=== PATIENT | male | born 1980 | race African-American/Black ===

== ENCOUNTER 2020-08-30 13:39 | Outpatient (REF) | payer OTHER, SELFPAY ==
[2020-08-30 16:25] LABS: MANUAL DIFF FLAG NO
[2020-08-30 16:29] LABS: Basophils Percent Auto 0.5 % (0-2); Eosinophils Absolute Auto 0.1 X10*3/uL (0.0-0.4); Eosinophils Percent Auto 1.2 % (0-4); Hematocrit 42.6 % (42-52); Hemoglobin 14.3 g/dl (14.0-18.0); Imm Gran Abs Auto 0.01 X10*3/uL (0.00-0.03); Imm Gran Pct Auto 0.2 % (0.0-0.4); Lymphocytes Absolute Auto 1.3 X10*3/uL (1.2-4.9); Lymphocytes Percent Auto 30.5 % (20-40); Mean Corpuscular HGB Conc 33.6 g/dl (31.0-36.0); Mean Corpuscular Hemoglobin 30.8 pg (27.0-33.0); Mean Corpuscular Volume 91.6 fL (80-98); Mean Platelet Volume 11.6 fL (9.4-12.4); Monocytes Absolute Auto 0.3 X10*3/uL (0.1-1.2); Monocytes Percent Auto 7.3 % (2-11); Neutrophils Absolute Auto 2.6 X10*3/uL (2.0-8.3); Neutrophils Percent Auto 60.3 % (45-73); Platelet Count 199 X10*3/uL (160-400); Red Blood Count 4.65 X10*6/uL (4.60-5.80); White Blood Count 4.2 X10*3/uL (4.8-10.8)
[2020-08-30 16:51] LABS: Alanine Aminotransferase 26 U/L (0-40); Albumin Level 4.3 g/dL (3.5-5.0); Alkaline Phosphatase 78 U/L (39-117); Anion Gap 13 (12-20); Aspartate Amino Transferase 26 U/L (5-37); Bilirubin Total 0.4 mg/dL (0.0-1.0); Blood Urea Nitrogen 12 mg/dL (9-16); Calcium 9.2 mg/dL (8.4-10.2); Carbon Dioxide 25 mmol/L (22-29); Chloride 107 mmol/L (96-108); Cholesterol 235 mg/dL; Estimated Glomerular Filt Rate > 60; Glucose Fasting 82 mg/dL (60-99); HDL Cholesterol 43 mg/dL; LDL Cholesterol Calculated 150 mg/dl; Potassium 4.5 mmol/L (3.3-5.1); Sodium 140 mmol/L (135-145); Total Protein 7.9 g/dL (6.5-8.0); Triglycerides 213 mg/dL
[2020-08-30 17:11] LABS: TSH reflex Free T4 1.07 uIU/mL (0.32-4.0)
[2020-08-30 17:13] LABS: Syphilis Screen Reactive (Nonreactive)
[2020-08-31 08:42] LABS: Herpes Simplex Type 1 IgG <0.90 index; Herpes Simplex Type 2 IgG 8.89 index
[2020-08-31 09:32] LABS: HBc Num1 0.05 S/CO (0.00-0.79); HIV AB/AG Nonreactive (Nonreactive); HIV Num 1 0.18 S/CO (0.00-0.99); Hepatitis B Core Antibody Nonreactive (Nonreactive); ~HepC Num1 0.09 S/CO (0.00-0.79); ~Hepatitis C Antibody Nonreactive (Nonreactive)
[2020-08-31 09:39] LABS: HBS Num1 0.13 mIU/mL (0-7.99); HBsAGNum1 0.41 S/CO (0.00-0.99); Hepatitis B Surface Antigen Negative (Negative); ~Hepatitis B Surface Antibody NONREACTIVE (Nonreactive)
[2020-09-04 08:57] LABS: Hepatitis A Antibody IgM 0.12 Index (0-0.79); ~Hepatitis A Antibody IgM Nonreactive (Nonreactive)
[2020-09-06 10:47] LABS: RPR Quantitative Reactive 1:4 (Nonreactive)
[2020-09-06 10:48] LABS: T.Pallidum Particle Agg Test Reactive (Nonreactive)
== END 2020-08-30 13:40 | disposition home or self-care (01) ==
LOC: HO.HMGCLDS 13:39
PROVIDERS: PCP Internal Medicine; Visit Provider Internal Medicine
DX: Z00.01 Encounter for general adult medical examination with abnormal findings (principal); E66.9 Obesity, unspecified; Z11.3 Encounter for screening for infections with a predominantly sexual mode of transmission; Z11.4 Encounter for screening for human immunodeficiency virus [HIV]; Z11.59 Encounter for screening for other viral diseases; Z13.220 Encounter for screening for lipoid disorders; Z11.8 Encounter for screening for other infectious and parasitic diseases; Z13.29 Encounter for screening for other suspected endocrine disorder; Z23 Encounter for immunization
CPT/HCPCS: 36415; 80053; 80061; 84443; 85025; 86592; 86695; 86696; 86704; 86706; 86709; 86780; 86803; 87340; 87389

== ENCOUNTER → 2020-10-29 11:09 | Outpatient (BNVA) | payer OTHER, SELFPAY | PROVIDERS: PCP Internal Medicine; Visit Provider Internal Medicine | DX: B00.9 Herpesviral infection, unspecified (principal); A53.9 Syphilis, unspecified | CPT/HCPCS: 99202 ==

== ENCOUNTER 2024-09-28 09:14 | Outpatient (REF) | payer OTHER, SELFPAY ==
--- NOTE | ~2024-09-28 | XR_ITS ---
EXAMINATION: XR CHEST CLINICAL INFORMATION: R05.9 - Cough, unspecified COMPARISON: None available. TECHNIQUE: 2 views of the chest were obtained. FINDINGS: The cardiac, hilar, and mediastinal contours are normal. The lungs are clear bilaterally. There is no pneumothorax or pleural effusion. There is no focal osseous or soft tissue abnormality. XR/XR chest 2V IMPRESSION: Normal chest. Electronically signed by: Vadim Serna MD 09/28/2024 10:47 AM EDT
== END 2024-09-28 09:15 | disposition home or self-care (01) ==
LOC: HO.HMGCX 09:14
PROVIDERS: Visit Provider Nurse Practitioner Family
DX: R05.2 Subacute cough (principal)
CPT/HCPCS: 71046; 99202

== ENCOUNTER 2024-09-28 09:14 | Outpatient (AMB) | payer OTHER, SELFPAY ==
--- NOTE | 2024-09-28 09:25 | AM.OFFWIN_ITS ---
Intake Vital Signs 09/28/24 09:27 Height 5 ft 11 in Weight 225 lb BMI 31.4 BP 122/84 Blood Pressure Location Rt brachial Position Sitting Pulse 65 Pulse Source Pulse Oximeter Temp 97.9 F Temp Source Oral Pulse Oximetry (%) 98 Oxygen Delivery Method Room Air Intake Visit Reasons: EP-chest congestion, cough, sob Intake Note: Patient here for chest congestion,cough and headache that started about 2 weeks ago. Patient Tobacco Use Status: Current everyday Tobacco user Allergies pollen Allergy (Unknown, Uncoded 09/28/24 09:26) unknown Do you need a note to return to daycare/school/sports/work: Yes HPI HPI Comments History of Present Illness Details 44 y/o Male patient who presents to the walk in clinic with c/o chest congestion,cough and headache that started about 2 weeks ago. His GF with similar symptoms and they live together. [facility] Medical History (Updated 09/28/24 @ 10:24 by Radha Powell NP) Cough Social History Alcohol intake: former Patient Tobacco Use Status: Current everyday Tobacco user Review of Systems Const All systems reviewed & are unremarkable except as noted in HPI and below Physical Exam Vital Signs: Last Vital Signs Temp 97.9 F 09/28/24 09:27 Pulse 65 09/28/24 09:27 BP 122/84 09/28/24 09:27 Pulse Ox 98 09/28/24 09:27 Oxygen Delivery Method Room Air 09/28/24 09:27 BMI result Body Mass Index 31.4 Const General: no acute distress Nutritional Appearance: overweight Orientation/consciousness: patient oriented x3 HEENT Head: Yes normocephalic Ears: external ears normal and TM abnormal with fluid behind the TM bilateral General nose exam: Normal external nose present Face and sinus: Yes sinuses nontender Mouth: moist mucous membranes Throat: Yes uvula midline Resp Effort & Inspection: normal respiratory effort, able to speak in complete sentences and Actively coughing Auscultation: no crackles, no rales, no rhonchi and wheezes scattered wheezes Cardio Rhythm: regular rhythm Heart sounds: S1 normal heart sound present and S2 normal heart sound present Neuro General: patient oriented x3 Assessment & Plan Assessment & Plan (1) Cough: Code(s): R05.9 - Cough, unspecified Qualifiers: Cough type: subacute Qualified Code(s): R05.2 - Subacute cough Plan: Ordered Chest XRay to r/o Pneumonia. Ordered Z-pack OTC cough remedies. Orders: Orders XR chest 2V Today R05.9 - Cough, unspecified Medications: New azithromycin 500 mg PO DAILY 3 days 3 tabs 0RF R05.9 - Cough, unspecified azithromycin 500 mg PO DAILY 3 days 3 tabs 0RF R05.9 - Cough, unspecified Coding Level of Care Code New Pt Level 4 (07329) Diagnoses Subacute cough R05.2 Cough type: subacute Time Spent (min) 20
[2024-09-28 09:27] VITALS: BP 122/84; PULSE 65; TEMP 36.6; O2SAT 98; BMI 31.4
== END 2024-09-28 10:51 | disposition home or self-care (01) ==
PROVIDERS: Visit Provider Nurse Practitioner Family
DX: R05.2 Subacute cough (principal)

== ENCOUNTER → 2024-09-28 10:33 | Outpatient (BNV) | payer OTHER, SELFPAY | PROVIDERS: Visit Provider Radiology Diagnostic Radiology | DX: R05.9 Cough, unspecified (principal) | CPT/HCPCS: 71046 ==

== ENCOUNTER 2024-10-11 11:41 | Outpatient (AMB) | payer OTHER, SELFPAY ==
[2024-10-11 11:52] VITALS: BP 120/78; PULSE 69; O2SAT 98; BMI 32.9
--- NOTE | 2024-10-11 11:52 | MHC.PC.OV ---
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 Allergies pollen Allergy (Unknown, Uncoded 10/11/24 11:52) unknown Medication List - Last Reconciled 10/11/24 by Santa Posada MD No Known Home Meds Tobacco use date assessed: 10/11/24 Dental Screening Dental Screen Date: 10/11/24 Did you have a dental visit in the last 12 months?: No Did you have a dental problem in the last 6 months where you did not have access to dental care?: No Was dental information given to patient?: Patient has dentist HPI 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 Typically, respiratory illnesses for this patient resolve in two to three days; however, this episode persisted for two weeks. Post-illness, the patient reports an ongoing need to clear phlegm which is yellow in color, sometimes brown in color. There has been no use of antibiotics for the recent respiratory symptoms. - The patient has a history of being bitten by a venomous spider during incarceration, resulting in an abdominal wound that has since healed. 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 - The patient has decided to cease smoking cannabis, a habit maintained since the age of 12, due to prior heavy usage and recent introspection. - The patient acknowledges being herpes positive and seeks testing for other sexually transmitted infections following a recent exposure. - Discussed colon cancer screening (colonoscopy) given age and wishes to proceed. Health Maintenance - Discussed age-appropriate colon cancer screening through referral for colonoscopy. - Reviewed previous tetanus vaccination in 2020, confirmed up-to-date status. - Provided guidance on smoking cessation, particularly the cessation of cannabis. 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 Patient Instructions - Stop smoking cannabis and seek support as necessary. - Follow up for colonoscopy referral will be initiated, and scheduling will occur based on instant printer operator availability. - Maintain current vaccinations; tetanus is up to date. - Proceed with sexually transmitted infections testing. - Contact the office if symptoms worsen or new symptoms develop. Review of Systems - General: No fever no chills - Neurological: No headaches no dizziness - Ear nose throat: No sore throat no hearing difficulty no ear pain - Cardiovascular: No syncope, no chest pain, no palpitations - Gastrointestinal: No nausea vomiting or diarrhea - Endocrine: No polyuria polydipsia no heat intolerance - Genitourinary: No dysuria - Skin: No new complaints Physical Exam General: Cooperative, healthy appearing, comfortable, no acute distress Orientation: Patient oriented x3 Head: Normal to inspection Ears: Within normal limit visually Nose: Normal external nose present Face and sinus: Normal facial exam Eyes: Appearance normal, extraocular movement intact pupils reactive Neck: Normal visual inspection and supple Respiratory: Normal respiratory effort and able to speak in complete sentences. Clear to auscultation, no stridor Cardiovascular: S1 and S2 RRR GI: Normal to inspection. Soft to palpation and nontender. Scar present on abdomen from previous spider bite Skin: Turgor normal, no acute findings. Cyst present on left buttock Neuro: Patient oriented x3, motor sensory intact, balance intact, tandem pass Extremities: Normal to inspection [facility] Medical History Cough Social History Housing: House Alcohol intake: former Patient Tobacco Use Status: Current everyday Tobacco user e-Cigarette/Vaping Use: Never Used service: No Current occupational status: employed Current occupational exposures/hazards: No Cognitive needs: No Hearing needs: No Vision needs: No Questionnaire PHQ-9 Over the last 2 weeks, how often have you been bothered by any of the following problems? 1. Little interest or pleasure in doing things: not at all 2. Feeling down, depressed, or hopeless: not at all 3. Trouble falling or staying asleep, or sleeping too much: not at all 4. Feeling tired or having little energy: not at all 5. Poor appetite or overeating: not at all 6. Feeling bad about yourself - or that you are a failure or have let yourself or your family down: not at all 7. Trouble concentrating on things, such as reading the newspaper or watching television: not at all 8. Moving or speaking so slowly that other people could have noticed. Or the opposite - being so fidgety or restless that you have been moving around a lot more than usual: not at all 9. Thoughts that you would be better off or of hurting yourself in some way: not at all Total score: 0 Depression Screening Interpretation: Negative Depression Screening Done: Yes 79454 - PHQ-9 Billing: Yes Source: Developed by Drs. Eric Perez, Irene Anne, Patrick Hi and colleagues, with an educational alea from [employer]. Thrive Questionnaire Date Thrive assessed: 10/11/24 I am a: Patient What is your living situation today?: I have a steady place to live Within the past 12 months, did the food you bought not last and you didn't have the money to get more?: Sometimes True Within the past 12 months, did you worry whether your food would run out before you got money to buy more?: Sometimes True Do you have trouble paying for medicines?: No Do you have trouble getting transportation to medical appointments?: No Do you have trouble paying your heating and electricity bill?: No Do you have trouble taking care of your child, family member or friend?: No Do you have trouble with day-to-day activities such as bathing, preparing meals, shopping, managing finances, etc.?: No Are you currently unemployed and looking for a job?: No Are you interested in more education?: No Please select the resources that you would like help with: Housing/Longterm Currently or been in a relationship where the following occur: Controlled Emotionally THRIVE Score: 3 AUDIT C Alcohol Use Questionnaire (AUDIT-C) 1. How often do you have a drink containing alcohol?: 2-4 times a month 2. How many drinks containing alcohol do you have on a typical day when you are drinking?: 1 or 2 3. How often do you have six or more drinks on one occasion?: Never Total Score: 2 Score Reviewed/Action Taken: Yes PADMA-7 AMB Questionnaire PADMA-7 Date PADMA - 7 assessed: 10/11/24 Feeling nervous, anxious, or on edge: 1 = Several days Not being able to stop or control worryin = Several days Worrying too much about different things: 1 = Several days Trouble relaxin = Several days Being so restless that it is hard to sit still: 0 = Not at all Becoming easily annoyed or irritable: 1 = Several days Feeling afraid as if something awful might happen: 2 = More than half the days Total PADMA-7 score (0-4 normal; 5-9 mild; 10-14 moderate; 15-21 severe): 7 Source: Developed by Drs. Eric Perez, Irene Anne, Patrick Hi and colleagues, with an educational alea from [employer]. PADMA-7 Assessment Billing PADMA-7 Assessment Tool: PADMA-7 Assessment 18557 Physical exam (Primary Care) Vital Signs: Last Vital Signs Pulse 69 10/11/24 11:52 BP 120/78 10/11/24 11:52 Pulse Ox 98 10/11/24 11:52 Oxygen Delivery Method Room Air 10/11/24 11:52 BMI result Body Mass Index 32.9 Tobacco/Smoking Status: Tobacco use Status Tobacco use date assessed 10/11/24 10/11/24 11:59 Patient Tobacco Use Status Current everyday Tobacco 10/11/24 11:59 e-Cigarette/Vaping Use Never Used 10/11/24 11:59 PHQ-9: PHQ-9 Score PHQ-9: Total score 0 10/11/24 12:16 Depression Screening Interpretation: Negative Thrive Assessment: Date of Thrive Assessment Date Thrive assessed 10/11/24 10/11/24 11:59 Currently or been in a relationship where the following occur: Controlled Emotionally Coding Level of Care Code New Pt Level 3 (58077) New Pt Prev Care 40-64y(76685) Diagnoses Encounter for general adult medical examination with abnormal findings Z00.01 Obesity (BMI 30.0-34.9) E66.9 Lipid disorder E78.9 Screen for STD (sexually transmitted disease) Z11.3 Additional Codes PADMA-7 Assessment Billing - PADMA-7 Assessment Tool: PADMA-7 Assessment 78512 ([id number]) PHQ-9 - 27051 - PHQ-9 Billing: Yes ([id number]) Assessment & Plan Assessment & Plan (1) Encounter for general adult medical examination with abnormal findings: Code(s): Z00.01 - Encounter for general adult medical examination with abnormal findings Category: Medical (2) Obesity (BMI 30.0-34.9): Code(s): E66.9 - Obesity, unspecified Category: Medical (3) Lipid disorder: Code(s): E78.9 - Disorder of lipoprotein metabolism, unspecified Category: Medical (4) Screen for STD (sexually transmitted disease): Code(s): Z11.3 - Encounter for screening for infections with a predominantly sexual mode of transmission Category: Medical Plan New patient appointment - The patient is a 44-year-old male presenting with follow-up concerning a recurrent left buttock cyst and respiratory symptoms - The patient experienced a sinus infection two weeks prior, which evolved into a chest cold. Typically, respiratory illnesses for this patient resolve in two to three days; however, this episode persisted for two weeks. Post-illness, the patient reports an ongoing need to clear phlegm which is yellow in color, sometimes brown in color. There has been no use of antibiotics for the recent respiratory symptoms. - The patient has a history of being bitten by a venomous spider during incarceration, resulting in an abdominal wound that has since healed. 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 - The patient has decided to cease smoking cannabis, a habit maintained since the age of 12, due to prior heavy usage and recent introspection. - The patient acknowledges being herpes positive and seeks testing for other sexually transmitted infections following a recent exposure. - Discussed colon cancer screening (colonoscopy) given age and wishes to proceed. Health Maintenance - Discussed age-appropriate colon cancer screening through referral for colonoscopy. - Reviewed previous tetanus vaccination in 2020, confirmed up-to-date status. - Provided guidance on smoking cessation, particularly the cessation of cannabis. 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 Patient Instructions - Stop smoking cannabis and seek support as necessary. - Follow up for colonoscopy referral will be initiated, and scheduling will occur based on instant printer operator availability. - Maintain current vaccinations; tetanus is up to date. - Proceed with sexually transmitted infections testing. - Contact the office if symptoms worsen or new symptoms develop. Orders: Orders Vitamin D 25-OH (D2 and D3) Today E66.9 - Obesity, unspecified, E78.9 - Disorder of lipoprotein metabolism, unspecified, Z00.01 - Encounter for general adult medical examination with abnormal findings TSH reflex Free T4 Today E66.9 - Obesity, unspecified, E78.9 - Disorder of lipoprotein metabolism, unspecified, Z00.01 - Encounter for general adult medical examination with abnormal findings Hepatitis C Antibody Today Z11.3 - Encounter for screening for infections with a predominantly sexual mode of transmission Herpes Simplex Virus Ab IgG Today Z11.3 - Encounter for screening for infections with a predominantly sexual mode of transmission Complete Blood Count Auto Diff Today E66.9 - Obesity, unspecified, E78.9 - Disorder of lipoprotein metabolism, unspecified, Z00.01 - Encounter for general adult medical examination with abnormal findings Comprehensive [place]. Panel Fast Today E66.9 - Obesity, unspecified, E78.9 - Disorder of lipoprotein metabolism, unspecified, Z00.01 - Encounter for general adult medical examination with abnormal findings Lipid Panel Today E66.9 - Obesity, unspecified, E78.9 - Disorder of lipoprotein metabolism, unspecified, Z00.01 - Encounter for general adult medical examination with abnormal findings Hepatitis B Surface Antibody Today Z11.3 - Encounter for screening for infections with a predominantly sexual mode of transmission HIV Ab/Ag Today Z11.3 - Encounter for screening for infections with a predominantly sexual mode of transmission Syphilis Screen Today Z11.3 - Encounter for screening for infections with a predominantly sexual mode of transmission Referrals Open Access Screening Colonoscopy Referral Z12.11 - Encounter for screening for malignant neoplasm of colon Medications: New azithromycin Take 2 tablets today then 1 daily 250 mg PO ONCE 5 days 6 tabs 0RF J06.9 - Acute upper respiratory infection, unspecified
== END 2024-10-11 12:17 | disposition home or self-care (01) ==
LOC: HO.HMCC 11:42
PROVIDERS: Visit Provider Internal Medicine
DX: Z00.01 Encounter for general adult medical examination with abnormal findings (principal); E78.9 Disorder of lipoprotein metabolism, unspecified; E66.9 Obesity, unspecified; Z68.32 Body mass index [BMI] 32.0-32.9, adult; Z11.3 Encounter for screening for infections with a predominantly sexual mode of transmission

== ENCOUNTER → 2024-10-11 11:41 | Outpatient (BNVA) | payer OTHER, SELFPAY | PROVIDERS: Visit Provider Internal Medicine | DX: Z00.01 Encounter for general adult medical examination with abnormal findings (principal); E66.9 Obesity, unspecified; E78.9 Disorder of lipoprotein metabolism, unspecified; J06.9 Acute upper respiratory infection, unspecified; L72.9 Follicular cyst of the skin and subcutaneous tissue, unspecified; B00.9 Herpesviral infection, unspecified; Z68.32 Body mass index [BMI] 32.0-32.9, adult | CPT/HCPCS: 96127; 99212; 99396 ==

== ENCOUNTER 2024-10-12 07:59 | Outpatient (REF) | payer OTHER, SELFPAY ==
[2024-10-12 10:18] LABS: MANUAL DIFF FLAG NO
[2024-10-12 10:30] LABS: Basophils Percent Auto 0.6 % (0-2); Eosinophils Absolute Auto 0.1 X10*3/uL (0.0-0.4); Hematocrit 42.8 % (42.0-52.0); Hemoglobin 14.3 g/dl (14.0-18.0); Imm Gran Abs Auto 0.01 X10*3/uL (0.00-0.03); Imm Gran Pct Auto 0.3 % (0.0-0.4); Lymphocytes Absolute Auto 1.3 X10*3/uL (1.2-4.9); Lymphocytes Percent Auto 36.8 % (20-40); Mean Corpuscular HGB Conc 33.4 g/dl (31.0-36.0); Mean Corpuscular Volume 92.8 fL (80.0-98.0); Mean Platelet Volume 11.1 fL (9.4-12.4); Monocytes Absolute Auto 0.3 X10*3/uL (0.1-1.2); Monocytes Percent Auto 9.1 % (2-11); Neutrophils Absolute Auto 1.7 x10*3/uL (2.0-8.3); Neutrophils Percent Auto 49.2 % (45-73); Platelet Count 197 X10*3/uL (160-400); Red Blood Count 4.61 X10*6/uL (4.60-5.80); White Blood Count 3.5 X10*3/uL (4.8-10.8)
[2024-10-12 11:33] LABS: Syphilis Screen Reactive (Nonreactive)
[2024-10-12 11:48] LABS: Alanine Aminotransferase 31 U/L (0-40); Albumin Level 4.2 g/dL (3.5-5.0); Alkaline Phosphatase 71 U/L (39-117); Anion Gap 10 (12-20); Aspartate Amino Transferase 35 U/L (5-37); Bilirubin Total 0.4 mg/dL (0.0-1.0); Blood Urea Nitrogen 10 mg/dL (9-16); Calcium 9.3 mg/dL (8.4-10.2); Carbon Dioxide 24 mmol/L (22-29); Chloride 110 mmol/L (96-108); Cholesterol 233 mg/dL (<200); Estimated Glomerular Filt Rate > 60; Glucose Fasting 98 mg/dL (60-99); HDL Cholesterol 45 mg/dL (>40); LDL Cholesterol Calculated 158 mg/dL (<100); Potassium 4.3 mmol/L (3.3-5.1); Sodium 140 mmol/L (135-145); TSH reflex Free T4 1.84 uIU/mL (0.32-4.0); Total Protein 7.6 g/dL (6.5-8.0); Triglycerides 152 mg/dL (<150)
[2024-10-12 12:03] LABS: HIV AB/AG Nonreactive (Nonreactive); ~HepC Num1 0.09 S/CO (0.00-0.79); ~Hepatitis B Surface Antibody NONREACTIVE (Nonreactive); ~Hepatitis C Antibody Nonreactive (Nonreactive)
[2024-10-13 06:39] LABS: Herpes Simplex Type 1 IgG <0.90 index; Herpes Simplex Type 2 IgG 7.85 index
[2024-10-14 15:29] LABS: RPR Quantitative Reactive 1:2 (Nonreactive); T.Pallidum Particle Agg Test Reactive (Nonreactive)
[2024-10-16 15:28] LABS: Vitamin D 25-OH, D2 <4 ng/mL; Vitamin D 25-OH, D3 23 ng/mL; Vitamin D 25-OH, Total 23 ng/mL (30-100)
== END 2024-10-12 08:00 | disposition home or self-care (01) ==
LOC: HO.HMGCLDS 07:59
PROVIDERS: PCP Internal Medicine; Visit Provider Internal Medicine
DX: Z00.01 Encounter for general adult medical examination with abnormal findings (principal); E66.9 Obesity, unspecified; Z11.3 Encounter for screening for infections with a predominantly sexual mode of transmission; E78.9 Disorder of lipoprotein metabolism, unspecified
CPT/HCPCS: 36415; 80053; 80061; 82306; 84443; 85025; 86592; 86695; 86696; 86706; 86780; 86803; 87389

== ENCOUNTER 2024-10-19 08:13 | Outpatient (AMB) | payer OTHER, SELFPAY ==
--- NOTE | 2024-10-19 09:07 | A.OFFPC_ITS ---
Intake Visit Reasons: lab results. Allergies pollen Allergy (Unknown, Uncoded 10/11/24 11:52) unknown Medication List - Last Reconciled 10/19/24 by Santa Posada MD Tobacco use date assessed: 10/11/24 Dental Screening Dental Screen Date: 10/11/24 HPI lab results. HPI Details History - The patient is a 44-year-old male pres enting with follow-up on lab results and management of previously diagnosed conditions. - The patient has a history of low vitam in D levels, which were identified during a routine laboratory evaluation and continues to persist, requiring supplementation. - The patient has a history of syphilis, initially diagnosed in 2020. The patient received treatment at that time but did not pursue follow-up care to confirm resolution of the infection. - The patient reports that syphilis test ing done at this visit returned positive, and acknowledges understanding of the condition. - The patient has hypercholesterolemia, a condition previously identified, with elevated cholesterol levels noted. The patient is advised to avoid fried and fatty foods to manage cholesterol levels. Problem List - Vitamin D deficiency - Syphilis - Hypercholesterolemia Patient Instructions - Take vitamin D supplements as provided . - Schedule a follow-up visit with an inf ectious disease specialist to discuss the syphilis test results and determine if further treatment is necessary. - Avoid fried foods and foods high in fa t to help manage cholesterol levels. Review of Systems - General: No fever no chills - Neurological: No headaches no dizziness - Ear nose throat: No sore throat no hearing difficulty no ear pain - Cardiovascular: No syncope, no chest pain, no palpitations - Gastrointestinal: No nausea vomiting or diarrhea PFSH Medical History Cough Social History Housing: House Alcohol intake: former Patient Tobacco Use Status: Current everyday Tobacco user e-Cigarette/Vaping Use: Never Used service: No Current occupational status: employed Current occupational exposures/hazards: No Cognitive needs: No Hearing needs: No Vision needs: No Questionnaire Thrive Questionnaire Date Thrive assessed: 10/11/24 I am a: Patient What is your living situation today?: I have a steady place to live Within the past 12 months, did the food you bought not last and you didn't have the money to get more?: Sometimes True Within the past 12 months, did you worry whether your food would run out before you got money to buy more?: Sometimes True Do you have trouble paying for medicines?: No Do you have trouble getting transportation to medical appointments?: No Do you have trouble paying your heating and electricity bill?: No Do you have trouble taking care of your child, family member or friend?: No Do you have trouble with day-to-day activities such as bathing, preparing meals, shopping, managing finances, etc.?: No Are you currently unemployed and looking for a job?: No Are you interested in more education?: No Please select the resources that you would like help with: Housing/Long Term Currently or been in a relationship where the following occur: Controlled Emotionally THRIVE Score: 3 PADMA-7 AMB Questionnaire PADMA-7 Date PADMA - 7 assessed: 10/11/24 Source: Developed by Drs. Eric Perez, Irene Anne, Patrick Hi and colleagues, with an educational alea from [employer]. Physical exam (Primary Care) Tobacco/Smoking Status: Tobacco use Status Tobacco use date assessed 10/11/24 10/19/24 09:07 Patient Tobacco Use Status Current everyday Tobacco 10/19/24 09:07 e-Cigarette/Vaping Use Never Used 10/19/24 09:07 Thrive Assessment: Date of Thrive Assessment Date Thrive assessed 10/11/24 10/19/24 09:07 Currently or been in a relationship where the following occur: Controlled Emotionally Telehealth Telehealth Telehealth Platform: [facility] Location of provider rendering services: practice address Location of patient: address on file Patient Identification confirmed using: Name, : Yes Telehealth method: voice only Patient verbally consented to treatment: Yes Patient verbally consented to billing insurance company: Yes Patient informed of any privacy concerns related to visit: Yes Minutes spent on Phone/Video with Pt.: 13 Coding Level of Care Code Tele Est Pt Level 3 (76184) Diagnoses Syphilis in male A53.9 Vitamin D deficiency E55.9 Assessment & Plan Assessment & Plan (1) Syphilis in male: Code(s): A53.9 - Syphilis, unspecified Category: Medical (2) Vitamin D deficiency: Code(s): E55.9 - Vitamin D deficiency, unspecified Category: Medical Plan History - The patient is a 44-year-old male presenting with follow-up on lab results and management of previously diagnosed conditions. - The patient has a history of low vitamin D levels, which were identified during a routine laboratory evaluation and continues to persist, requiring supplementation. - The patient has a history of syphilis, initially diagnosed in 2020. The patient received treatment at that time but did not pursue follow-up care to confirm resolution of the infection. - The patient reports that syphilis testing done at this visit returned positive, and acknowledges understanding of the condition. - The patient has hypercholesterolemia, a condition previously identified, with elevated cholesterol levels noted. The patient is advised to avoid fried and fatty foods to manage cholesterol levels. Problem List - Vitamin D deficiency - Syphilis - Hypercholesterolemia Patient Instructions - Take vitamin D supplements as provided. - Schedule a follow-up visit with an infectious disease specialist to discuss the syphilis test results and determine if further treatment is necessary. - Avoid fried foods and foods high in fat to help manage cholesterol levels. Orders: Referrals Infectious Disease Referral A53.9 - Syphilis, unspecified Medications: New cholecalciferol (vitamin D3) 25 mcg PO DAILY 90 caps 1RF 90 days
== END 2024-10-19 09:28 | disposition home or self-care (01) ==
LOC: HO.HMCC 08:13
PROVIDERS: PCP Internal Medicine; Visit Provider Internal Medicine
DX: A53.9 Syphilis, unspecified (principal); E55.9 Vitamin D deficiency, unspecified

== ENCOUNTER → 2024-10-19 08:13 | Outpatient (BNVA) | payer OTHER, SELFPAY | PROVIDERS: PCP Internal Medicine; Visit Provider Internal Medicine | DX: Z13.89 Encounter for screening for other disorder (principal) ==

== ENCOUNTER 2024-11-06 14:21 | Outpatient (AMB) | payer OTHER, SELFPAY ==
--- NOTE | 2024-11-07 15:09 | MHC.OFFVIS ---
Intake Visit Reasons: reff/Syphilis Allergies pollen Allergy (Unknown, Uncoded 10/11/24 11:52) unknown HPI HPI reff/Syphilis: Details: I had seen him 08/30/2020 for possible syphilis with titer 1:4. He has had prior treatment that year with three IM doses per patient. He has no symptoms. He has recheck this year with titer 1:2 with no symptoms of any kind and no exposure. [facility] Medical History Cough Social History Housing: House Alcohol intake: former Patient Tobacco Use Status: Current everyday Tobacco user e-Cigarette/Vaping Use: Never Used service: No Current occupational status: employed Current occupational exposures/hazards: No Cognitive needs: No Hearing needs: No Vision needs: No Review of Systems Const All systems reviewed & are unremarkable except as noted in HPI and below Physical Exam Const General: cooperative HEENT Head: Yes normal to inspection Face and sinus: Yes normal facial exam Mouth: Normal oral and palatal mucosa present Teeth and gingiva: dentition normal Eyes General: appearance normal, both eyes and all related structures Pupils: Equal, round and reactive pupils present Resp Effort & Inspection: normal respiratory effort Cardio Rate: regular rate Rhythm: regular rhythm GI Palpation (GI): Soft to palpation and nontender General: Yes no CVA tenderness Back/Spine/Pelvis Back: no CVA tenderness Skin General skin exam: no rashes or lesions noted Neuro General: moves all extremities Cranial nerves: Yes Equal, round and reactive pupils present Extrem General: Yes normal to inspection Psych Appearance: grossly normal Assessment & Plan Assessment & Plan (1) Screen for STD (sexually transmitted disease): Code(s): Z11.3 - Encounter for screening for infections with a predominantly sexual mode of transmission Category: Medical Plan: He has no symptoms and likely is serofast at 1:2. No further treatment or testing unless exposure concerns or symptoms, He is HIV negative. Coding Level of Care Code Est Pt Level 3 (75293) Diagnoses Screen for STD (sexually transmitted disease) Z11.3
== END 2024-11-06 14:53 | disposition home or self-care (01) ==
LOC: HO.HID 14:22
PROVIDERS: PCP Internal Medicine; Visit Provider Internal Medicine
DX: Z11.3 Encounter for screening for infections with a predominantly sexual mode of transmission (principal)
CPT/HCPCS: 99213

== ENCOUNTER → 2024-11-06 14:21 | Outpatient (BNVA) | payer OTHER, SELFPAY | PROVIDERS: PCP Internal Medicine; Visit Provider Internal Medicine | DX: Z11.3 Encounter for screening for infections with a predominantly sexual mode of transmission (principal) | CPT/HCPCS: 99212 ==